=== PATIENT | female | born 2005 | race African-American/Black ===

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

== ENCOUNTER 2024-09-12 22:29 | Emergency (ER) | payer MEDICAID ==
[~2024-09-12] VITALS: Ht 170.2 cm; Wt 90.0 kg
[~2024-09-12 22:29] MED LIST changes: +AMOX-424 MT; +IRON1CAP20 MT; +MULT-1146 MT
[2024-09-12 22:30] VITALS: O2SAT 99
[2024-09-12 22:57] VITALS: BP 151/92; PULSE 79; RESP 18; TEMP 36.9; O2SAT 100
[2024-09-12] MEDS ORDERED: FLUC150T46 MT (23:29)
== END 2024-09-12 23:47 | disposition home or self-care (01) ==
LOC: ER 22:29
DX: B37.9 Candidiasis, unspecified (principal); Z79.899 Other long term (current) drug therapy
CPT/HCPCS: 99283